=== PATIENT | male | born 2000 | race Hispanic/Latino ===

== ENCOUNTER 2023-01-21 00:21 | Emergency (ER) | payer OTHER ==
[2023-01-21] MEDS ORDERED: Ketorolac Tromethamine 30 MG/ML VIAL ONE (02:06)
== END 2023-01-21 03:01 ==
LOC: ERS 00:21
DX: N43.3 Hydrocele, unspecified (principal); I10 Essential (primary) hypertension
CPT/HCPCS: 76870; 93976; 96372; J1885